=== PATIENT | male | born 1990 | race Caucasian/White ===

== ENCOUNTER 2020-01-14 17:22 | Inpatient (IN) | payer OTHER ==
[~2020-01-14] VITALS: Ht 167.6 cm; Wt 94.9 kg
[2020-01-14 17:30] VITALS: BP 141/105
[2020-01-14 18:17] LABS: BASO % 0.3 % (0.0-1.0); EOS % 0.3 % (1.0-4.0); HEMATOCRIT 46.7 % (42.0-52.0); LYMPH # 1.5 10*3/uL (1.3-4.4); LYMPH % 12.4 % (27.0-41.0); MEAN CORPUSCULAR HGB 33.8 pg (27.0-31.0); MEAN PLATELET VOLUME 8.5 fl (9.6-12.3); MONO # 0.4 10*3/uL (0.1-1.0); NEUT # 9.9 10*3/uL (2.3-7.9); NEUT % 83.5 % (47.0-73.0); PLATELET COUNT AUTOMATED 243 10*3/uL (130-400); RED BLOOD COUNT 4.97 10*6/uL (4.50-5.90); RED CELL DISTRI WIDTH 12.6 % (0-14.5); WHITE BLOOD COUNT 11.8 10*3/uL (4.8-10.8)
--- NOTE | 2020-01-14 18:22 | NUR ---
PT ADVISED WE DO NEED A URINE SAMPLE. HE STATES UNABLE AT THIS TIME. LIGHTS DIMMED FOR COMFORT. CALL GARRIDO WITHIN REACH WILL CONTINUE TO MONITOR.
[2020-01-14 18:26] LABS: INTERNATIONAL NORM RATIO 0.9 (2.0-3.5)
[2020-01-14 18:34] LABS: ACETAMINOPHEN (TYLENOL) < 5.0 ug/ml (10-30); ALKALINE PHOSPHATASE 65 U/L (45-117); BUN 12 mg/dl (7-24); CHLORIDE 109 mmol/L (98-107); CREATININE 0.94 mg/dL (0.70-1.30); LIPASE 141 U/L (73-393); POTASSIUM 3.8 mmol/L (3.5-5.1); SGOT/AST 26 IU/L (3-35); SGPT/ALT 24 U/L (12-78); SODIUM 140 mmol/L (136-145); TOTAL PROTEIN 7.8 gm/dL (6.4-8.2); TROPONIN I < 0.015 ng/ml (<0.045)
--- NOTE | 2020-01-14 18:48 | NUR ---
PT IS SLEEPING IN ROOM. NO SIGNS OF ACUTE DISTRESS. RESPIRATIONS ARE EASY AND NONLABORED. WILL CONTINUE TO MONITOR.
--- NOTE | 2020-01-14 19:11 | NUR ---
PT STATES HE IS FEELING A LITTLE BIT BETTER
[2020-01-14 19:20] LABS: URINE AMPHETAMINES < 1000 (1000ng/ml); URINE BARBITURATES < 200 (200ng/ml); URINE BENZODIAZEPINES < 200 (200ng/ml); URINE CANNABINOIDS (THC) > 50 (50ng/ml); URINE COCAINE < 300 (300ng/ml); URINE METHADONE < 300 (300ng/ml); URINE OPIATES < 300 (300ng/ml)
[2020-01-14 19:23] LABS: URINE PHENCYCLIDINE < 25 (25ng/ml)
--- NOTE | 2020-01-14 20:50 | NUR ---
A 29, admitted to , under the services of JAJA Erickson DO with a diagnosis of ALCOHOL WITHDRAWAL. Chief complaint is NASUEA AND VOMITING WITH COFFEE GROUND EMESIS. Patient arrived via ambulance from ER. Monitor applied. Initial assessment completed. Vital signs taken and recorded. JAJA ERICKSON DO notified of admission to the unit. Orders received. See assessment for past medical history, medications and allergies. Patient and/or family oriented to unit. [facility] visitation policy reviewed. Clothing/patient valuable form completed. MICHELLE WATT A
--- NOTE | 2020-01-14 20:53 | NUR ---
AWARE OF LA 3.0. IVF ON ORDER AND INFUSING.
--- NOTE | 2020-01-14 20:53 | NUR ---
PT STATES NO HOME MEDS.
--- NOTE | 2020-01-14 21:12 | NUR ---
C/O NAUSEA DESPITE ZOFRAN GIVEN IN ED. CALLED . SAID HE WOULD PUT ORDERS FOR PHENERGAN IN.
--- NOTE | 2020-01-14 21:29 | NUR ---
PHENERGAN GIVEN FOR CONTINUED COMPLAINTS OF NAUSEA.
--- NOTE | 2020-01-14 21:39 | NUR ---
200ML EMESIS EMPTIED FROM BASIN. ORANGE/PINK IN COLOR. CLEAR. NO COFFEE GROUNDS NOTED. WILL MONITOR. CALL LIGHT IN REACH. RESTING IN BED WITH IVF INFUSING.
--- NOTE | 2020-01-14 21:42 | NUR ---
PRONE LAYING. RESTING WITH EASE. VOICES NO COMPLAINTS AT THIS TIME. PHENERGAN CONTINUES TO INFUSE. CALL LIGHT WITHIN REACH.
--- NOTE | 2020-01-14 22:11 | NUR ---
PER PT, PHENERGAN WAS EFFECTIVE AND SAYS HE IS FEELING BETTER THAN BEFORE. CALL LIGHT WITHIN REACH. NO FURTHER COMPLAINTS AT THIS TIME.
--- NOTE | 2020-01-14 23:06 | NUR ---
CALLED FOR LACTIC ACID OF 3.3. NO NEW ORDERS REC'D.
--- NOTE | 2020-01-14 23:52 | NUR ---
CONTINUES WITH NO VOICED COMPLAINTS. CALL LIGHT IN REACH. IVF INFUSING WITH EASE.
[2020-01-15] VITALS: BP 137/84
--- NOTE | 2020-01-15 00:59 | NUR ---
ZOFRAN GIVEN FOR FURTHER COMPLAINTS OF NAUSEA AND VOMITING. 300ML EMESIS CLEANED FROM BASIN. CLEAR WITHOUT COFFEE GOUNDS. ORANGE TINT IN COLOR WITH MUCOUS. CALL LIGHT IN REACH. WILL MONITOR.
--- NOTE | 2020-01-15 01:34 | NUR ---
24HR CHART CHECK COMPLETED
--- NOTE | 2020-01-15 01:56 | NUR ---
SLEEPING. NO SXS OF DISTRESS NOTED. ZOFRAN SEEMS TO BE EFFECTIVE. CALL LIGHT WITHIN REACH.
--- NOTE | 2020-01-15 03:11 | NUR ---
AWAKENS EASILY FOR PO MEDS. CALL LIGHT IN REACH. STATES HE IS FEELING MUCH BETTER AT THIS TIME.
[2020-01-15 06:14] LABS: ALBUMIN 3.4 gm/dl (3.1-4.5); ALKALINE PHOSPHATASE 62 U/L (45-117); BUN 10 mg/dl (7-24); CHLORIDE 107 mmol/L (98-107); CREATININE 0.71 mg/dL (0.70-1.30); POTASSIUM 3.6 mmol/L (3.5-5.1); SGOT/AST 16 IU/L (3-35); SGPT/ALT 22 U/L (12-78); SODIUM 139 mmol/L (136-145); TOTAL PROTEIN 6.7 gm/dL (6.4-8.2)
[2020-01-15 06:19] LABS: BASO % 0.2 % (0.0-1.0); HEMATOCRIT 42.3 % (42.0-52.0); LYMPH # 1.3 10*3/uL (1.3-4.4); LYMPH % 12.2 % (27.0-41.0); MEAN CELL VOLUME 95.7 fl (80.0-94.0); MEAN CORPUSCULAR HGB 33.5 pg (27.0-31.0); MEAN PLATELET VOLUME 9.2 fl (9.6-12.3); MONO # 0.3 10*3/uL (0.1-1.0); MONO % 2.9 % (3.0-9.0); NEUT # 9.2 10*3/uL (2.3-7.9); NEUT % 84.1 % (47.0-73.0); PLATELET COUNT AUTOMATED 223 10*3/uL (130-400); RED BLOOD COUNT 4.42 10*6/uL (4.50-5.90); RED CELL DISTRI WIDTH 12.6 % (0-14.5); WHITE BLOOD COUNT 10.9 10*3/uL (4.8-10.8)
--- NOTE | 2020-01-15 07:00 | NUR ---
ASSUMED CARE OF PATIENT AT THIS TIME. PATIENT DENIES ANY COMPLAINTS AND STATES HE US FEELING MUCH BETTER TODAY. RESPS EASY AND REGULAR. ASSESSMENT COMPLETE. VSS. CALL LIGHT IN REACH. WILL MONITOR.
[2020-01-15 08:00] VITALS: BP 120/86
--- NOTE | 2020-01-15 09:00 | NUR ---
SPOKE WITH PATIENTS MOTHERS AND UPDATED HER ON PATIENTS CONDITIONS AND POC.
--- NOTE | 2020-01-15 09:00 | NUR ---
Band Straightener in to talk to patient. Patient states lives at home with family. There are no steps in the home. Physician: none Pharmacy: Home health services: none Patient's level of ADLs: INDEPENDENT Patient has working utilities: all working DME: none Follow-up physician's appointment after d/c: will be made by hospitalist nurse director upon discharge with doctor of patient's choice Does patient want to access PORTAL?: no Discharge plan discussed with patient, he lives at home with family, is independent in adls and ambualtion, patient denies any home needs, case management contacted Pema from [facility] regarding self pay status. Pema stated she spoke with the patient and he has [employer] health care insurance. case management will follow for any home needs. QUEENIE JERONIMO
[2020-01-15 12:00] VITALS: BP 133/87
--- NOTE | 2020-01-15 12:36 | NUR ---
PATIENT WANTING TO SHOWER. PER OK FOR PATIENT TO SHOWER. MONITOR TAKEN OFF, IV WRAPPED. WILL PUT MONITOR ON SOON PATIENT GETS OUT OF SHOWER.
--- NOTE | 2020-01-15 13:45 | NUR ---
PATIENT REQUESTING NICOTNE PATCH. PRN NICOTINE PATCH PLACED ON PATIENTS LAYNE. WILL ASSESS EFFECTIVENESS. PATIENT DENIES THE NEED FOR ANYTHING ELSE AT THIS TIME. WILL MONITOR. CALL LIGHT IN REACH.
[2020-01-15] MEDS ORDERED: PROTONIX40 MG PO (14:36)
--- NOTE | 2020-01-15 15:04 | NUR ---
Discharge instructions reviewed with patient/family. Patient receptive and verbalizes understanding. Follow-up care arranged. Written instructions given to patient/family. MONITORED AND IV BOTH REMOVED. PATIENT LEFT AMBULATORY IN CARE OF HIS MOTHER. PRESCRIPTION WAS GIVEN TO PATIENT. MABLE COLON
== END 2020-01-15 15:04 | disposition home or self-care (01) | DRG 775 ==
LOC: ED 17:22 → EDHOLD 19:05 → 4E 19:05
PROVIDERS: Internal Medicine; Physician Assistant; ADMIT Emergency Medicine
DX: F10.230 Alcohol dependence with withdrawal, uncomplicated (principal); F32.9 Major depressive disorder, single episode, unspecified; F41.9 Anxiety disorder, unspecified; E87.2 Acidosis; E44.1 Mild protein-calorie malnutrition; F17.210 Nicotine dependence, cigarettes, uncomplicated; E87.8 Other disorders of electrolyte and fluid balance, not elsewhere classified; E83.41 Hypermagnesemia; Z83.3 Family history of diabetes mellitus; Z71.6 Tobacco abuse counseling; Z68.33 Body mass index [BMI] 33.0-33.9, adult

== ENCOUNTER 2020-02-27 05:07 | Observation (INO) | payer OTHER ==
[~2020-02-27] VITALS: Ht 167.6 cm; Wt 91.4 kg
[~2020-02-27 05:07] MED LIST: PROTONIX40 MG PO
[2020-02-27 05:12] VITALS: BP 141/8; BP 141/85
[2020-02-27 06:10] LABS: BASO # 0.1 10*3/uL (0.0-0.1); BASO % 0.5 % (0.0-1.0); EOS % 0.2 % (1.0-4.0); HEMATOCRIT 51.2 % (42.0-52.0); LYMPH # 1.4 10*3/uL (1.3-4.4); LYMPH % 13.3 % (27.0-41.0); MEAN CELL VOLUME 93.9 fl (80.0-94.0); MEAN CORPUSCULAR HGB CONC 35.2 g/dl (33.0-37.0); MEAN PLATELET VOLUME 8.8 fl (9.6-12.3); MONO # 0.6 10*3/uL (0.1-1.0); MONO % 5.3 % (3.0-9.0); NEUT # 8.4 10*3/uL (2.3-7.9); PLATELET COUNT AUTOMATED 268 10*3/uL (130-400); RED BLOOD COUNT 5.45 10*6/uL (4.50-5.90); RED CELL DISTRI WIDTH 12.3 % (0-14.5); WHITE BLOOD COUNT 10.5 10*3/uL (4.8-10.8)
[2020-02-27 06:23] LABS: ALBUMIN 4.4 gm/dl (3.1-4.5); ALKALINE PHOSPHATASE 74 U/L (45-117); BUN 9 mg/dl (7-24); CHLORIDE 101 mmol/L (98-107); CREATININE 1.19 mg/dL (0.70-1.30); LIPASE 311 U/L (73-393); POTASSIUM 3.5 mmol/L (3.5-5.1); SGOT/AST 19 IU/L (3-35); SGPT/ALT 24 U/L (12-78); SODIUM 136 mmol/L (136-145); TOTAL PROTEIN 9.1 gm/dL (6.4-8.2)
[2020-02-27 06:37] LABS: EPITHELIAL CELLS 0-2
[2020-02-27 06:38] LABS: BILIRUBIN 1+ (NEGATIVE); CLARITY SL CLOUDY (CLEAR); COLOR YELLOW (YELLOW); GLUCOSE NEGATIVE (NEGATIVE); KETONE 3+ (NEGATIVE); MUCOUS 4+
[2020-02-27 06:39] LABS: BLOOD NEGATIVE (NEGATIVE); LEUKO ESTERASE NEGATIVE (NEGATIVE); NITRITE NEGATIVE (NEGATIVE); SPECIFIC GRAVITY 1.025 (1.005-1.030); UROBILINOGEN 0.2 E.U./dl (0.2-1.0)
--- NOTE | 2020-02-27 06:47 | NUR ---
PT DRINKING CT PREP--JOSHUA DAVENPORT RN
--- NOTE | 2020-02-27 07:24 | NUR ---
PT DRANK X2 BOTTLES OF ORAL CONTRAST BUT THREW UP A COPIOUS AMOUNT SHORTLY AFTER. CT NOTIFIED
--- NOTE | 2020-02-27 08:00 | NUR ---
PTS MOTHER CALLED FOR AN UPDATE. SHE CAN BE REACHED BY [phone] (MIRI
--- NOTE | 2020-02-27 09:04 | NUR ---
PT AMBULATORY TO RESTROOM AT THIS TIME.
--- NOTE | 2020-02-27 10:45 | NUR ---
MSADMTime: N A 29 year old MALE admitted to 5E under services of MARIA DEL CARMEN LUNDBERG DO. Pt. arrived via bed from ER. Chief complaint: NAUSEA/VOMITING. ASHLEY ZHANG
[2020-02-27 12:00] VITALS: BP 113/72
[2020-02-27 16:00] VITALS: BP 110/65
--- NOTE | 2020-02-27 18:00 | NUR ---
RESTING IN BED WITH ETYES CLOSED. CALL LIGHT IN REACH. WILL MONITOR.
--- NOTE | 2020-02-27 19:00 | NUR ---
ASSUMED CARE FOR THIS PT AT THIS TIME. NO C/O WITHDRAWALS NOTED OR EXPRESSED. PT GETTING A SHOWER.
[2020-02-27 20:00] VITALS: BP 117/74
[2020-02-27 20:40] LABS: URINE AMPHETAMINES < 1000 (1000ng/ml); URINE BARBITURATES < 200 (200ng/ml); URINE BENZODIAZEPINES < 200 (200ng/ml); URINE CANNABINOIDS (THC) > 50 (50ng/ml); URINE COCAINE < 300 (300ng/ml); URINE METHADONE < 300 (300ng/ml); URINE OPIATES < 300 (300ng/ml)
[2020-02-27 20:41] LABS: URINE PHENCYCLIDINE < 25 (25ng/ml)
[2020-02-28] VITALS: BP 107/79
[2020-02-28 07:15] LABS: BASO # 0.1 10*3/uL (0.0-0.1); BASO % 0.8 % (0.0-1.0); EOS # 0.1 10*3/uL (0.0-0.4); EOS % 1.1 % (1.0-4.0); HEMATOCRIT 45.7 % (42.0-52.0); LYMPH # 3.1 10*3/uL (1.3-4.4); LYMPH % 43.1 % (27.0-41.0); MEAN CORPUSCULAR HGB 33.5 pg (27.0-31.0); MEAN CORPUSCULAR HGB CONC 34.4 g/dl (33.0-37.0); MEAN PLATELET VOLUME 8.9 fl (9.6-12.3); MONO # 0.6 10*3/uL (0.1-1.0); MONO % 8.7 % (3.0-9.0); NEUT # 3.2 10*3/uL (2.3-7.9); NEUT % 45.2 % (47.0-73.0); PLATELET COUNT AUTOMATED 239 10*3/uL (130-400); RED BLOOD COUNT 4.68 10*6/uL (4.50-5.90); RED CELL DISTRI WIDTH 12.8 % (0-14.5); WHITE BLOOD COUNT 7.1 10*3/uL (4.8-10.8)
[2020-02-28 07:16] LABS: MEAN CELL VOLUME 97.6 fl (80.0-94.0)
[2020-02-28 07:36] LABS: ALBUMIN 3.4 gm/dl (3.1-4.5); BUN 8 mg/dl (7-24); CHLORIDE 107 mmol/L (98-107); CREATININE 0.89 mg/dL (0.70-1.30); SODIUM 139 mmol/L (136-145); TRIGLYCERIDES 131 mg/dl (<150); VLDL CHOLESTEROL 26 mg/dL (6-40)
[2020-02-28 07:45] LABS: ALKALINE PHOSPHATASE 54 U/L (45-117); CHOLESTEROL 210 mg/dL (<200); FREE T4 1.18 ng/dl (0.76-1.46); HDL CHOLESTEROL 45 mg/dl (40-60); LDL CHOLESTEROL 139 mg/dL (9-159); SGOT/AST 16 IU/L (3-35); SGPT/ALT 19 U/L (12-78); THYROID STIM HORMONE (HS) 0.814 uIU/ml (0.358-4.75); TOTAL PROTEIN 7.1 gm/dL (6.4-8.2)
[2020-02-28 08:00] VITALS: BP 110/82
--- NOTE | 2020-02-28 08:00 | NUR ---
PATIENT IV WRAPPED AND IS IN THE SHOWER. NO COMPLAINTS.
[2020-02-28 08:35] LABS: VITAMIN D, 25-HYDROXY 14.7 ng/mL (30-100)
[2020-02-28] MEDS ORDERED: CARAFATE1 G1 PO (10:51)
--- NOTE | 2020-02-28 11:00 | NUR ---
PATIENT DISCHARGED TO HOME.
--- NOTE | 2020-02-28 12:07 | NUR ---
Field Organizer in to talk to patient. Patient states lives at HOME with MOTHER AND UNCLE. There are NO steps in the home. Physician: NONE AT THIS TIME Pharmacy: [facility] health services: NONE Patient's level of ADLs: INDEPENDENT Patient has working utilities: YES DME: NONE Follow-up physician's appointment after d/c: WILL BE MADE BY HOSPITALIST NURSE DIRECTOR ON DISCHARGE Does patient want to access PORTAL?: NO Discharge plan PT LIVES AT HOME WITH HIS MOTHER AND UNCLE AND IS INDEPENDENT IN HIS CARE. DENIES HE WILL HAVE ANY NEEDS AT DISCHARGE. PLAN IS TO RETURN HOME WITH NO NEEDS ON DISCHARGE. WILL CONTINUE TO FOLLOW. MOTHER WILL TAKE PT HOME ON DISCHARGE.. KYRA NEAL
== END 2020-02-28 11:00 | disposition home or self-care (01) ==
LOC: ED 05:07 → 5E 09:32 → EDHOLD 09:32 → 5E 09:40
PROVIDERS: Emergency Medicine; Student in an Organized Health Care Education/Training Program; ADMIT Family Medicine
DX: R11.2 Nausea with vomiting, unspecified (principal); F10.239 Alcohol dependence with withdrawal, unspecified; K92.0 Hematemesis; E80.6 Other disorders of bilirubin metabolism; R73.9 Hyperglycemia, unspecified; F12.90 Cannabis use, unspecified, uncomplicated; K21.9 Gastro-esophageal reflux disease without esophagitis; F41.9 Anxiety disorder, unspecified; F17.210 Nicotine dependence, cigarettes, uncomplicated

== ENCOUNTER → 2020-03-12 | Outpatient (CLI) | payer OTHER ==
[~2020-03-12] MED LIST changes: +CARAFATE1 G1 PO
== END | disposition home or self-care (01) ==
LOC: RESCLI 01:45
DX: K92.0 Hematemesis (principal); K21.9 Gastro-esophageal reflux disease without esophagitis; F41.8 Other specified anxiety disorders; E66.9 Obesity, unspecified; F17.200 Nicotine dependence, unspecified, uncomplicated; F10.10 Alcohol abuse, uncomplicated; F12.10 Cannabis abuse, uncomplicated; Z98.890 Other specified postprocedural states